=== PATIENT | female | born 1980 | race Caucasian/White ===

== ENCOUNTER 2024-09-01 11:24 | Emergency (ER) | payer MEDICAID ==
[2024-08-19 16:08] VITALS: TEMP 36.72516
[~2024-09-01] VITALS: Ht 162.6 cm; Wt 60.0 kg
[~2024-09-01 11:24] MED LIST: LEVO100T9 PO; MULT-278 PO
[2024-09-01 11:40] VITALS: BP 128/80; PULSE 95; RESP 18; TEMP 97.9; O2SAT 98
[2024-09-01 12:44] LABS: CLARITY URINE CLEAR (CLEAR); COLOR URINE YELLOW (YELLOW); GLUCOSE URINE NEGATIVE (NEGATIVE); KETONES URINE NEGATIVE (NEGATIVE); LEUKOCYTE ESTERASE URINE NEGATIVE (NEGATIVE); NITRITE URINE NEGATIVE (NEGATIVE); OCCULT BLOOD URINE NEGATIVE (NEGATIVE); PH URINE 6.5 (4.5-8.0); PROTEIN URINE NEGATIVE (NEGATIVE); SPECIFIC GRAVITY URINE 1.019 (1.005-1.030); UROBILINOGEN URINE 0.2 E.U./dL (0.2-1.0)
[2024-09-05 09:06] LABS: CHLAMYDIA TRACHOMATIS NAA Negative (Negative); NEISSERIA GONORRHOEAE NAA Negative (Negative)
== END 2024-09-01 15:01 | disposition home or self-care (01) ==
LOC: ER 11:24
DX: A60.00 Herpesviral infection of urogenital system, unspecified (principal)
CPT/HCPCS: 81003; 81025; 87491; 87529; 87591; 99283